=== PATIENT | male | born 1995 | race Caucasian/White ===

== ENCOUNTER 2021-12-06 09:54 | Day surgery (SDC) | payer OTHER ==
[2021-11-30 15:21] LABS: BASOPHILS % (AUTO) 0.3 % (0-1); EOSINOPHILS # (AUTO) 0.1 X10'3 (0-0.9); EOSINOPHILS % (AUTO) 0.7 % (0-6); LYMPHOCYTES # (AUTO) 2.7 X10'3 (1.1-4.8); LYMPHOCYTES % (AUTO) 27.8 % (21-51); MEAN CORPUSCULAR HEMOGLOBIN 30.9 PG (27.0-31.0); MEAN CORPUSCULAR HGB CONC 34.6 g/dL (33.0-36.5); MEAN CORPUSCULAR VOLUME 89.4 FL (78-98); MEAN PLATELET VOLUME 7.8 FL (7.4-10.4); MONOCYTES # (AUTO) 0.8 X10'3 (0-0.9); MONOCYTES % (AUTO) 7.8 % (2-12); NEUTROPHILS # (AUTO) 6.2 X10'3 (1.8-7.7); NEUTROPHILS % (AUTO) 63.4 % (42-75); PRE OP HEMATOCRIT 44.9 % (42.0-52.0); PRE OP HEMOGLOBIN 15.5 g/dL (14.0-17.9); PRE OP PLATELET COUNT 312 X10'3 (140-440); RED BLOOD COUNT 5.03 X10'6 (4.70-6.10); RED CELL DISTRIBUTION WIDTH 12.4 % (11.5-14.5)
[2021-11-30 15:33] LABS: ALBUMIN 4.5 G/DL (3.4-5.0); ALBUMIN/GLOBULIN RATIO 1.3 (1.1-1.5); ALKALINE PHOSPHATASE 59 IU/L (46-116); BLOOD UREA NITROGEN 11 MG/DL (7-18); BUN/CREATININE RATIO 12.4 (5.4-32.0); CALCIUM 9.3 MG/DL (8.5-10.1); CHLORIDE 106 MMOL/L (99-107); CREATININE 0.89 MG/DL (0.60-1.10); PRE OP ALT 53 U/L (30-65); PRE OP ANION GAP 6 (8-16); PRE OP AST 29 U/L (10-37); PRE OP BILIRUB, TOTAL 0.3 MG/DL (0.0-1.0); PRE OP GLUCOSE 86 MG/DL (70-104); PRE OP POTASSIUM 4.4 MMOL/L (3.4-5.1); PRE OP SODIUM 141 MMOL/L (135-145); TOTAL CARBON DIOXIDE 29.2 MMOL/L (24-32); TOTAL PROTEIN 7.9 G/DL (6.4-8.2); eGFR > 90 ML/MIN
[2021-12-06] VITALS (9 sets, daily range): BP systolic 126–146; BP diastolic 65–96
[~2021-12-06] VITALS: Ht 177.8 cm; Wt 81.6 kg
[~2021-12-06 09:54] MED LIST: ESOM20CA10 PO; cefazolin/dext.iso 2gm/50ml IV ONE; famotidine 20mg tablet PO ONE; ringers solution, lacted 1,000 ML IV SCH
[2021-12-06] MEDS ORDERED: BUPIVAcaine 0.5% inj/PF 30 ML ONE (10:43)
[2021-12-06] MEDS ORDERED: LIDOcaine 1% 30ml preserv. free vial ONE (10:43)
[2021-12-06] MEDS ORDERED: rocuronium 10mg/ml inj IV ONE (12:11)
[2021-12-06] MEDS ORDERED: propofol inj 20 ML IV ONE (12:11)
[2021-12-06] MEDS ORDERED: fentaNYL/PF 50MCG/1 ML 2ML syringe ONE (12:11)
[2021-12-06] MEDS ORDERED: midazolam 1 mg/ML 2ml injection ONE (12:11)
[2021-12-06] MEDS ORDERED: BUPIVAcaine 0.5% inj/PF 30 ml vial IJ ONE (12:36)
[2021-12-06] MEDS ORDERED: morphine 4 MG/ML inj SYRINge IV PRN (12:50)
[2021-12-06] MEDS ORDERED: ondansetron/PF 4mg/2ml inj IV PRN (12:50)
[2021-12-06] MEDS ORDERED: ringers solution, lacted 1,000 ML IV SCH (12:50)
[2021-12-06] MEDS ORDERED: meperidine/PF 25mg/ml syringe IV PRN ×3 (12:50)
[2021-12-06] MEDS ORDERED: morphine 2 MG/ML inj. syringe IV PRN (12:50)
[2021-12-06] MEDS ORDERED: proCHLORperazine 10 MG/2 ml inj IV PRN (12:50)
[2021-12-06] MEDS ORDERED: neostigmine methylsulfate 1 MG/ML 10ml vial ONE (13:13)
[2021-12-06] MEDS ORDERED: glycopyrrolate 0.2mg/ml inj ONE (13:13)
--- NOTE | 2021-12-06 13:36 | NUR ---
Received from OR via [facility] , accompanied by Anesthesiologist DR. MCKNIGHT and report given by Anesthesiolgist.
[2021-12-06] MEDS ORDERED: HYDROcodone/acetaminophen 5mg/325mg tablet PO PRN (13:45)
--- NOTE | 2021-12-06 14:43 | NUR ---
SIGNIFICANT OTHER AT BEDSIDE, PT GETTING DRESSED, FEELS LIKE HE HAS TO URINATE, URINAL GIVEN TO PT
--- NOTE | 2021-12-06 15:36 | NUR ---
DISCHARGE INSTRUCTIONS GIVEN TO PT AND SIGNIFICANT OTHER. BOTH VERBALIZED UNDERSTANDING, PT WAS ABLE TO URINATE IN THE URINAL, BLADDER SCANNED AFTER URINATION FOR LESS THAN 10CC IN BLADDER. PT INSTRUCTED TO NOT LIFT OVER 20 POUNDS FOR 2 WEEKS, NORCO GIVEN PRIOR TO DISCHARGE BECAUSE PATIENT HAS A 3 HOUR RIDE HOME TO TRA. NO SIGNS OF REACTION NOTED.
== END 2021-12-06 15:36 | disposition home or self-care (01) ==
LOC: PAS 09:54
PROVIDERS: ATTEND Surgery
DX: K40.20 Bilateral inguinal hernia, without obstruction or gangrene, not specified as recurrent (principal); K21.9 Gastro-esophageal reflux disease without esophagitis; Z20.822 Contact with and (suspected) exposure to COVID-19; Z98.890 Other specified postprocedural states; Z79.899 Other long term (current) drug therapy; Z87.891 Personal history of nicotine dependence; Z82.49 Family history of ischemic heart disease and other diseases of the circulatory system
CPT/HCPCS: 36415; 49650; 80053; 82948; 85025; C1781; J2250; J2704; J2710; J3010; J3490; J7030; J7120; S0020; S2900; U0003; U0005; Z7506; Z7508; Z7512; A4215; A4618